=== PATIENT | male | born 1960 | race Caucasian/White ===

== ENCOUNTER 2022-01-23 13:57 | Emergency (ER) | payer SELFPAY ==
[2022-01-23 15:09] LABS: Absolute Lymphocytes (CBC) 0.3 K/uL (0.7-4.9); Hematocrit 42.8 % (39.6-49.0); Lymphocytes % 4.6 % (15.3-44.8); MCV 89.7 fL (80-100); MPV 8.2 fL (7.6-11.3); RBC Red Blood Cell Count 4.77 M/uL (4.33-5.43)
[2022-01-23 15:28] LABS: Potassium 3.9 mmol/L (3.5-5.1)
[2022-01-23] MEDS ORDERED: BEBTELOVIMAB 175 MG/2 ML VIAL IV ONE (18:00)
--- NOTE | 2022-01-23 18:28 | EDPHYS ---
Physician Documentation [facility] Name: Pastor Jackson Age: 61 yrs Sex: Male : 1960 Arrival Date: 01/23/2022 Time: 13:58 Bed Waiting Private MD: ERWIN Physician Tyrone Maxwell HPI: 01/23 23:13 This 61 yrs old Male presents to ER via Ambulatory with complaints of covid+/antibody kb infusion. 23:13 The patient or guardian reports flu symptoms, low-grade fever, myalgias. Onset: The kb symptoms/episode began/occurred yesterday. Severity of symptoms: At their worst the symptoms were mild, moderate, in the emergency department the symptoms are unchanged. Modifying factors: The symptoms are alleviated by nothing, the symptoms are aggravated by nothing. Associated signs and symptoms: Pertinent positives: fever, Pertinent negatives: chest pain, diarrhea, ear ache, nausea, rhinorrhea, sore throat, vomiting. The patient has not experienced similar symptoms in the past. The patient has not recently seen a physician. Patient reports body aches, fatigue, malaise, fever, chills that started yesterday. Took 2 home COVID test today that were positive. Came to the ER for monoclonal antibodies.. Historical: - Allergies: 14:43 No Known Allergies; bm7 - Home Meds: 14:43 None [Active]; bm7 - PMHx: 14:43 GERD; bm7 - PSHx: 14:43 None; bm7 - Immunization history:: Adult Immunizations up to date, Client reports receiving the Arnold \\T\\ Arnold single-dose vaccine. - Social history:: Smoking status: Patient/guardian denies using tobacco, but has a distant history of tobacco abuse. ROS: 23:12 Respiratory: Negative for shortness of breath, cough, wheezing, and pleuritic chest kb pain. 23:12 Constitutional: Positive for body aches, chills, fatigue, fever, malaise. 23:12 All other systems are negative. Exam: 23:12 Constitutional: This is a well developed, well nourished patient who is awake, alert, kb and in no acute distress. Head/Face: Normocephalic, atraumatic. ENT: Moist Mucous membranes Cardiovascular: Regular rate and rhythm with a normal S1 and S2. No gallops, murmurs, or rubs. No pulse deficits. Respiratory: Respirations even and unlabored. No increased work of breathing. Talking in full sentences Abdomen/GI: Soft, non-tender. No distention Skin: Warm, dry with normal turgor. Normal color. MS/ Extremity: Pulses equal, no cyanosis. Neurovascular intact. Full, normal range of motion. Neuro: Awake and alert, GCS 15, oriented to person, place, time, and situation. Moves all extremities. Normal gait. Psych: Awake, alert, with orientation to person, place and time. Behavior, mood, and affect are within normal limits. Vital Signs: 14:38 BP 149 / 80; Pulse 89; Resp 16; Temp 97.5(TE); Pulse Ox 98% on R/A; Weight 106.59 kg bm7 (R); Height 6 ft. 1 in. (185.42 cm); Pain 0/10; 17:52 BP 150 / 72; Pulse 80; Resp 16; Temp 98.2(TE); Pulse Ox 100% on R/A; bm7 14:38 Body Mass Index 31.00 (106.59 kg, 185.42 cm) bm7 MDM: 14:42 Patient medically screened. kb 23:04 Data reviewed: vital signs, nurses notes. Data interpreted: Pulse oximetry: on room air kb is 100 %. Interpretation: normal. Counseling: I had a detailed discussion with the patient and/or guardian regarding: the historical points, exam findings, and any diagnostic results supporting the discharge/admit diagnosis, lab results, the need for outpatient follow up, a family practitioner, to return to the emergency department if symptoms worsen or persist or if there are any questions or concerns that arise at home. 01/23 14:42 Order name: COVID-19 SARS RT PCR (Document "Date of Onset" if Symptomatic); Complete kb Time: 16:33 01/23 14:42 Order name: Basic Metabolic Panel; Complete Time: 15:37 kb 01/23 14:42 Order name: CBC with Diff; Complete Time: 15:18 kb 01/23 14:42 Order name: IV Start; Complete Time: 15:01 kb Administered Medications: 17:57 Drug: Bebtelovimab 175 mg Route: IV; Rate: calculated rate; Site: right antecubital; bm7 19:03 Follow up: Response: No adverse reaction bm7 Disposition Summary: 01/23/22 18:27 Discharge Ordered Location: Home kb Condition: Stable kb Diagnosis - Coronavirus infection, unspecified kb Followup: kb - With: Emergency Department - When: As needed - Reason: Worsening of condition Followup: kb - With: Private Physician - When: 2 - 3 days - Reason: Recheck today's complaints, Continuance of care, Re-evaluation by your physician Discharge Instructions: - Discharge Summary Sheet kb - Viral Respiratory Infection, [id number] kb - COVID-19 kb Forms: - Medication Reconciliation Form kb - Thank You Letter kb - Antibiotic Education kb - Prescription Opioid Use kb Addendum: 01/27/2022 07:37 Co-signature as Attending Physician, Tyrone Maxwell MD. r n Signatures: Dispatcher [employer] EDLori Bryant, THEATRICAL VARIETY AGENT-C THEATRICAL VARIETY AGENT-Ckb Tyrone Maxwell MD MD rn McCarthy, Brittany, RN RN bm7
--- NOTE | 2022-01-23 18:28 | ER ---
Nurse's Notes [facility] Name: Pastor Jackson Age: 61 yrs Sex: Male : 1960 Arrival Date: 01/23/2022 Time: 13:58 Bed Waiting Private MD: Diagnosis: Coronavirus infection, unspecified Presentation: 01/23 14:38 Chief complaint: Patient states: I have had body aches and chills for the past few days bm7 and I did two at home COVID tests and they were both positive. My brother told me to come in and get the antibody infusion. Coronavirus screen: Client presents with at least one sign or symptom that may indicate coronavirus-19. Standard/surgical mask placed on the client. Client reports previous positive COVID test result. Date of collection: January 23, 2022. Ebola Screen: No symptoms or risks identified at this time. Initial Sepsis Screen: Does the patient meet any 2 criteria? No. Patient's initial sepsis screen is negative. Does the patient have a suspected source of infection? Yes: Productive cough/pneumonia. Risk Assessment: Do you want to hurt yourself or someone else? Patient reports no desire to harm self or others. Onset of symptoms was January 23, 2022. Care prior to arrival: Medication(s) given: Motrin, 1300 Tylenol, 1300. 14:38 Method Of Arrival: Ambulatory bm7 14:38 Acuity: ROSEMARY 4 bm7 Triage Assessment: 14:43 General: Appears in no apparent distress. comfortable, Behavior is calm, cooperative, bm7 appropriate for age. Pain: Denies pain. EENT: No deficits noted. No signs and/or symptoms were reported regarding the EENT system. Neuro: No deficits noted. Level of Consciousness is awake, alert, obeys commands, Oriented to person, place, time. Cardiovascular: Chest pain is denied. Respiratory: Reports cough that is Airway is patent Respiratory effort is even, unlabored, Respiratory pattern is regular, symmetrical, Breath sounds are clear bilaterally. GI: No deficits noted. No signs and/or symptoms were reported involving the gastrointestinal system. : No deficits noted. No signs and/or symptoms were reported regarding the genitourinary system. Derm: No deficits noted. No signs and/or symptoms reported regarding the dermatologic system. Skin is intact, is healthy with good turgor, Skin is dry, Skin is pink, warm \\T\\ dry. Skin temperature is warm. Musculoskeletal: No deficits noted. No signs and/or symptoms reported regarding the musculoskeletal system. Historical: - Allergies: 14:43 No Known Allergies; bm7 - Home Meds: 14:43 None [Active]; bm7 - PMHx: 14:43 GERD; bm7 - PSHx: 14:43 None; bm7 - Immunization history:: Adult Immunizations up to date, Client reports receiving the Arnold \\T\\ Arnold single-dose vaccine. - Social history:: Smoking status: Patient/guardian denies using tobacco, but has a distant history of tobacco abuse. Assessment: 17:52 Reassessment: Patient and/or family updated on plan of care and expected duration. Pain bm7 level reassessed. Patient is alert, oriented x 3, equal unlabored respirations, skin warm/dry/pink. Vital Signs: 14:38 BP 149 / 80; Pulse 89; Resp 16; Temp 97.5(TE); Pulse Ox 98% on R/A; Weight 106.59 kg bm7 (R); Height 6 ft. 1 in. (185.42 cm); Pain 0/10; 17:52 BP 150 / 72; Pulse 80; Resp 16; Temp 98.2(TE); Pulse Ox 100% on R/A; bm7 14:38 Body Mass Index 31.00 (106.59 kg, 185.42 cm) bm7 ED Course: 13:58 Patient arrived in ED. am2 14:33 Lori Bragg FNP-C is [facility]. kb 14:33 Tyrone Maxwell MD is Attending Physician. kb 14:41 Triage completed. bm7 14:43 Arm band placed on right wrist. bm7 15:00 Inserted saline lock: 22 gauge in right antecubital area, using aseptic technique. Blood collected. 15:01 CBC with Diff Sent. 15:01 Basic Metabolic Panel Sent. 15:01 COVID-19 SARS RT PCR (Document "Date of Onset" if Symptomatic) Sent. Administered Medications: 17:57 Drug: Bebtelovimab 175 mg Route: IV; Rate: calculated rate; Site: right antecubital; bm7 19:03 Follow up: Response: No adverse reaction bm7 Outcome: 18:27 Discharge ordered by . kb 19:03 Patient left the ED. bm7 Signatures: Lori Bragg, MARYC SOLE ASSESSOR-Sarah Cyr am2 Evita Humphrey, RN RN bm7 Katey Santiago
[2022-01-23 20:24] VITALS: BP 150/72; TEMP 98.2; O2SAT 100
== END 2022-01-23 19:03 | disposition home or self-care (01) ==
LOC: ER 13:57
DX: U07.1 COVID-19 (principal)
CPT/HCPCS: 36415; 80048; 85025; 96374; 99283; U0003